=== PATIENT | female | born 1970 | race Two or more races ===

== ENCOUNTER 2017-09-29 07:33 | Inpatient (IN) | payer OTHER ==
[~2017-09-29] VITALS: Ht 162.6 cm; Wt 65.8 kg
--- NOTE | 2017-09-29 07:52 | NUR ---
a/ox4, patient came to er for fever, nausea and body aches since last night. pt sts she was recently admitted to the hospital for sepsis but left ama after 3 days. placed on cont cardiac and pox monitoring, sinustachy at 122 in the monitor. afebrile. all needs are attended, kept warm and comfortable. will cont to monitor
--- NOTE | 2017-09-29 07:53 | NUR ---
dr park at bedside for evaluation.
[2017-09-29] MEDS ORDERED: IV NS 0.9% 1,000 ML BAG IV ONE (08:00)
[2017-09-29 08:10] LABS: BASOPHILS % (AUTO) 0.3 % (0.0-2.0); EOSINOPHILS # (AUTO) 0.1 /CMM (0.0-0.7); EOSINOPHILS % (AUTO) 0.6 % (0.0-6.0); HEMATOCRIT 45 % (33-45); LYMPHOCYTES # (AUTO) 2.7 /CMM (0.8-4.8); LYMPHOCYTES % (AUTO) 27.3 % (20.0-44.0); MEAN CORPUSCULAR HEMOGLOBIN 30 PG (26.0-33.0); MEAN CORPUSCULAR HGB CONC 34 g/dl (31.0-36.0); MEAN CORPUSCULAR VOLUME 89 fL (82-100); MONOCYTES # (AUTO) 0.3 /CMM (0.1-1.30); MONOCYTES % (AUTO) 3.5 % (2.0-12.0); NEUTROPHILS # (AUTO) 6.6 /CMM (1.8-8.9); NEUTROPHILS % (AUTO) 68.3 % (43.0-81.0); PLATELET COUNT (AUTO) 433 /CMM (150-450); RDW COEFFICIENT OF VARIATION 13.1 (11.5-15.0); RED BLOOD CELL COUNT(AUTO) 5.03 MIL/uL (4.0-5.2); WHITE BLOOD COUNT (AUTO) 9.7 K/uL (4.3-11.0)
[2017-09-29 08:17] LABS: APPEARANCE,URINE SL CLOUDY (CLEAR); BILIRUBIN,URINE NEGATIVE (NEGATIVE); BLOOD, URINE NEGATIVE Ery/uL (NEGATIVE); COLOR,URINE YELLOW (YELLOW); KETONES,URINE NEGATIVE (NEGATIVE); LEUKOCYTE ESTERASE ,URINE NEGATIVE (NEGATIVE); NITRITE, URINE NEGATIVE (NEGATIVE); PROTEIN,URINE NEGATIVE (NEGATIVE); UGLUCOSE NEGATIVE (NEGATIVE); UROBILINOGEN,URINE 0.2 EU/dL (0.2)
[2017-09-29 08:26] LABS: ALANINE AMINOTRANSFERASE 40 U/L (12-78); ALBUMIN 3.9 g/dL (3.4-5.0); ALCOHOL, BLOOD < 3 mg/dL (0-0); ALKALINE PHOSPHATASE 80 U/L (46-116); ASPARTATE AMINOTRANSFERASE 20 U/L (15-37); BILIRUBIN,DIRECT 0.1 mg/dL (0.0-0.2); BILIRUBIN,TOTAL 0.5 mg/dL (0.2-1.0); CALCIUM, SERUM 9.2 mg/dL (8.5-10.1); CARBON DIOXIDE 28 mmol/L (21-32); CHLORIDE 103 mmol/L (98-107); CREATININE 0.8 mg/dL (0.6-1.3); GLUCOSE 137 mg/dL (74-106); POTASSIUM 3.8 mmol/L (3.5-5.1); SODIUM SERUM 142 mmol/L (136-145); TOTAL PROTEIN, SERUM 7.9 g/dL (6.4-8.2); UREA NITROGEN, BLOOD 11 mg/dL (7-18)
[2017-09-29 08:27] LABS: SALICYLATE 1.6 mg/dL (2.8-20.0); TROPONIN I < 0.017 ng/mL (0.00-0.056)
[2017-09-29 08:28] LABS: ACETAMINOPHEN < 10 ug/ml (10-30); INR 0.93 (0.87-1.13); PROTHROMBIN TIME 9.7 SECS (9.5-12.7)
--- NOTE | 2017-09-29 08:50 | NUR ---
PHARMACY CALLED,SPOKE WITH ALCIRA, TO SEND ROCEPHIN IV, [facility] IS OUT OF STOCK
[2017-09-29] MEDS ORDERED: CEFTRIAXONE 1GM BAG (ER ONLY) 1 GM/50 ML PIGGYBACK IV ONE (09:00)
--- NOTE | 2017-09-29 09:47 | NUR ---
MARGARITA FROM PHARMACY CALLED FOR MARIPOSA ROBLEROPB
[2017-09-29] MEDS ORDERED: MAGNESIUM HYDROXIDE 30 ML UDC PO PRN (10:00)
[2017-09-29] MEDS ORDERED: IV NS 0.9% 1,000 ML IV PRN (10:00)
[2017-09-29] MEDS ORDERED: ONDANSETRON HCL/PF 4 MG/2 ML VIAL IVP PRN (10:00)
[2017-09-29] MEDS ORDERED: MAG HYDROX/AL HYDROX/SIMETH 30 ML UDC PO PRN (10:00)
[2017-09-29] MEDS ORDERED: HYDROCODONE/APAP 5/325MG 1 EACH TABLET PO PRN (10:00)
[2017-09-29] MEDS ORDERED: Z GUARD REMEDY 2 OZ OINT TP PRN (10:00)
[2017-09-29] MEDS ORDERED: ACETAMINOPHEN 325 MG TABLET PO PRN (10:00)
[2017-09-29] MEDS ORDERED: CEFTRIAXONE 1GM BAG (ER ONLY) 50 ML IV ONE (10:09)
--- NOTE | 2017-09-29 10:18 | NUR ---
TRANSFERRED TO FLOOR VIA [facility]
--- NOTE | 2017-09-29 10:30 | NUR ---
CARPENTER REPAIRER INITIAL NOTE PATIENT BROUGHT TO SID VIA STRETCHER PATIENT IS AMBULATORY ALERT AND ORIENTED X 4 AND ABLE TO MAKE NEEDS KNOWN PATIENT DENIES ANY RECENT FALLS OPEN WOUNDS OR STRETCHED PATIENT BOYFRIEND IS AT BEDSIDE PATIENT ON ROOM AIR MILD SOB NOTED UPON RESTING HOWEVER NO CHEST PAIN PATIENT STATES FEELING LIKE SOMETHING IS OF PATIENT IS A CURRENT SMOKER AND STATES SHE SMOKES 1 PACK BETWEEN THE COURSE OF 3 DAYS . PATIENT STATES NOT MEDICATIONS TAKEN AT HOME PATIENT AWARE OF ATELECTASIS IN BILATERAL LOBES. PATIENT REQUESTING SMOKE CESSATION INFORMATION AND MEDICATION TO HELP HER STOP SMOKING . RN RINKU CONTINUE TO FOLLOW THE PATIENTS PROGRESS
[2017-09-29 10:33] LABS: TROPONIN I < 0.017 ng/mL (0.00-0.056)
[2017-09-29 10:58] LABS: IRON, SERUM 100 ug/dl (50-175); TOTAL IRON BINDING CAPACITY 281 ug/dl (250-450)
[2017-09-29 12:00] VITALS: BP 104/68
[2017-09-29] MEDS: ENOXAPARIN SODIUM 40 MG/0.4 ML DISP.SYRIN SQ SCH (12:27)
[2017-09-29 12:40] LABS: THYROID STIMULATING HORMONE 1.791 uIU/mL (0.358-3.74)
[2017-09-29] MEDS: IV NS 0.9% 1,000 ML IV PRN (13:23)
[2017-09-29 16:00] VITALS: BP 100/60
--- NOTE | 2017-09-29 17:02 | NUR ---
RN NOTE PATIENT COMPLAINING OF HEADACHES PATIENT STATES PAIN IS A 7 OUT OF 10 RN OFFERS PAIN PRMN MEDICATION PATIENT STATES SHE PREFERS NORCO [phone] AT THIS TIME. RN WILL CONTINUE TO FOLLOW PATIENT UPDATED ON PLAN OF CARE
--- NOTE | 2017-09-29 18:18 | NUR ---
RN NOTE PATIENT IN BED NO COMPLAINTS AT THIS TIME PATIENT UPDATED ON THE PLAN OF CARE NO COMPLAINTS AT THIS TIME , PATIENT ORIENTED TO THE ROOM , BOYFRIEND AT BEDSIDE. RN WILL ENDORSE CARE TO PM RN
--- NOTE | 2017-09-29 19:39 | NUR ---
rn opening note RECEIVED PATIENT IN BED ALERT/AWAKE, NO DISTRESS NOTED, NO NAUSEA/ VOMITING NOTED, BOYFRIEND IS BY BEDSIDE, BED IN THE LOW POSITION, CALL LIGHT WITHIN REACH, SIDE RAILS UP X 2
[2017-09-29 20:00] VITALS: BP 99/58
[2017-09-29] MEDS: ZOLPIDEM TARTRATE 5 MG TABLET PO PRN (21:34)
--- NOTE | 2017-09-29 21:35 | NUR ---
rn note patient requested Bright, notified charge nurse, BP 102/67, will recheck bp
[2017-09-29 22:00] VITALS: BP 102/62
[2017-09-30] VITALS: BP 98/63
[2017-09-30] MEDS: IV NS 0.9% 1,000 ML IV PRN (00:30)
[2017-09-30 04:00] VITALS: BP 105/69
[2017-09-30 05:51] LABS: BASOPHILS % (AUTO) 0.2 % (0.0-2.0); EOSINOPHILS # (AUTO) 0.2 /CMM (0.0-0.7); EOSINOPHILS % (AUTO) 1.8 % (0.0-6.0); HEMATOCRIT 37 % (33-45); HEMOGLOBIN 12.4 g/dL (11.5-14.8); LYMPHOCYTES # (AUTO) 2.4 /CMM (0.8-4.8); LYMPHOCYTES % (AUTO) 24.2 % (20.0-44.0); MEAN CORPUSCULAR HEMOGLOBIN 31 PG (26.0-33.0); MEAN CORPUSCULAR HGB CONC 34 g/dl (31.0-36.0); MEAN CORPUSCULAR VOLUME 91 fL (82-100); MONOCYTES # (AUTO) 0.7 /CMM (0.1-1.30); MONOCYTES % (AUTO) 6.8 % (2.0-12.0); NEUTROPHILS # (AUTO) 6.6 /CMM (1.8-8.9); PLATELET COUNT (AUTO) 323 /CMM (150-450); RDW COEFFICIENT OF VARIATION 13.2 (11.5-15.0); RED BLOOD CELL COUNT(AUTO) 4.07 MIL/uL (4.0-5.2); WHITE BLOOD COUNT (AUTO) 9.9 K/uL (4.3-11.0)
[2017-09-30 06:08] LABS: CALCIUM, SERUM 8.1 mg/dL (8.5-10.1); CREATININE 0.5 mg/dL (0.6-1.3); MAGNESIUM 1.7 mg/dL (1.8-2.4); PHOSPHORUS 3.2 mg/dL (2.5-4.9)
--- NOTE | 2017-09-30 07:25 | NUR ---
RN NOTES RECEIVED PT IN STABLE CONDITION FROM BAND SHOVER CONDITION. A&0X3 ON ROOM AIR SATING WELL NO SOB OR DISTRESS NOTED. SR ON THE TELE MONITOR HR 88. RAC20G IV SITE INTACT WITH IVF AT 75ML/HR. BED LOCKED AND IN LOWEST POSITION, CALL LIGHT WITHIN REACH, SIDE RAILS UPX3, WILL CONT TO MARILU.
[2017-09-30 08:00] VITALS: BP 97/61
[2017-09-30] MEDS: ENOXAPARIN SODIUM 40 MG/0.4 ML DISP.SYRIN SQ SCH (08:48)
[2017-09-30] MEDS: LORAZEPAM INJ 2 MG/ML VIAL IV PRN ×2 (08:54→16:09)
[2017-09-30 12:00] VITALS: BP 96/59
[2017-09-30] MEDS: Magnesium 1GM/D5W 100ML PREMIX 100 ML IV SCH ×2 (12:22→13:46)
[2017-09-30 16:00] VITALS: BP 101/58
--- NOTE | 2017-09-30 18:32 | NUR ---
RN NOTES PT REMAINED IN STABLE CONDITION THROUGHOUT THE SHIFT, NO SIGNIFICANT CHANGES ALL NEEDS MET. NO COMPLAINTS OF PAIN AT THIS TIME. WILL ENDORSE TO ONCOMING SHIFT.
[2017-09-30 20:00] VITALS: BP 98/60
[2017-09-30] MEDS: ZOLPIDEM TARTRATE 5 MG TABLET PO PRN (20:20)
--- NOTE | 2017-09-30 20:20 | NUR ---
TELE 1 RN NOTE PT IN BED AWAKE. A/O X 4, NO SOB NOTED. PT C/O PAIN 7/ LOWER BACK. REMINDED PT PAIN MED IS NOT DUE TILL 2200. PT WANTS SLEEPING MED NOW, STATES " I WANT TO GO TO SLEEP NOW". AMBIEN 5 MG PO GIVEN. IVF NS @ 75 ML/HR INFUSING WELL RAC #20 G NO S/S OF INFILTRATION NOTED. FAMILY AT BED SIDE. SIDE RAILS UP X 2 AND CALL LIGHT WITHIN REACH. VSS CONTINUE TO MONITOR HER.
--- NOTE | 2017-09-30 22:43 | NUR ---
TELE 1 RN NOTE PT IN BED ASLEEP, NO DISTRESS NOTED. IVF INFUSING WELL. REPORT GIVEN TO NURSE RODRIGUES FOR CONTINUE TO CARE.
[2017-10-01] VITALS: BP 99/61
[2017-10-01 04:00] VITALS: BP 98/64
[2017-10-01] MEDS: IV NS 0.9% 1,000 ML IV PRN (05:38)
[2017-10-01 07:05] LABS: CREATININE 0.5 mg/dL (0.6-1.3); POTASSIUM 3.9 mmol/L (3.5-5.1)
--- NOTE | 2017-10-01 07:30 | NUR ---
ASSET MANAGEMENT ANALYST OPENING RECEIVED PATIENT A/OX4 DENIES SOB, DIFFICULTY BREATHING OR PAIN. PATIENT APPEARS STABLE. SLIGHTLY ANXIOUS AND WANTS TO GO HOME BUT SAYS SHE UNDERSTANDS IF SHE NEEDS TO STAY. ALL NEEDS IN REACH, UPDATED PATIENT ON CONDITION AND CARE PLAN AND STATES SHE FEELS BETTER. WILL ROUND Q2H OR LESS PER NEEDS
[2017-10-01 08:00] VITALS: BP 99/65
[2017-10-01 08:20] VITALS: BP 108/72
[2017-10-01] MEDS: LORAZEPAM INJ 2 MG/ML VIAL IV PRN (08:20)
[2017-10-01] MEDS: ENOXAPARIN SODIUM 40 MG/0.4 ML DISP.SYRIN SQ SCH (08:21)
[2017-10-01] MEDS ORDERED: CEFTRIAXONE 1 G VIAL IM SCH (11:30)
[2017-10-01 12:00] VITALS: BP 99/56
--- NOTE | 2017-10-01 12:20 | NUR ---
POCKETED SPRING ASSEMBLER NOTES STILL WAITING FOR PHARMACY TO PROVIDE ROCEPHIN
[2017-10-01] MEDS ORDERED: NICO1PAT25 TD (13:51)
[2017-10-01] MEDS ORDERED: NITR100C6 PO (13:51)
[2017-10-01] MEDS ORDERED: NICO1PAT23 TD (13:51)
[2017-10-01] MEDS ORDERED: CEFTRIAXONE 1 G in IV D5W 50 ML IV SCH (14:00)
--- NOTE | 2017-10-01 14:10 | NUR ---
BUILDING MAINTENANCE REPAIRERAIR BRAKE RIGGER PATIENT LEFT IN STABLE CONDITION. DID NOT WANT TO WAIT FOR IV AX ADMIN. DALLIN WROTE RX FOR PO ANTIBIOTICS WHICH I CALLED INTO PATIENT PREFERRED PHARMACY AND RX GIVEN TO PATIENT. PATIENT UPDATED ON DC MATERIAL AND STATED UNDERSTANDING. ALL DUE MEDS GIVEN AND ALL NEEDS MET. I REMOVED PATIENT IV ACCESS WITH PRESSURE AND DRESSING APPLIED NO BLEEDING NOTED. CATH TIP INTACT. PATIENT BELONGINGS ALL ACCOUNTED FOR AND SIGNED. PATIENT ASSISTED TO PRIVATE VEHICLE IN STABLE CONDITION BY BAUDILIO FARR
== END 2017-10-01 15:35 | disposition home or self-care (01) | DRG 720 ==
LOC: ER 07:38 → TELE1 09:10
PROVIDERS: ADMIT Internal Medicine; ATTEND Internal Medicine
DX: A41.9 Sepsis, unspecified organism (principal); E87.2 Acidosis; E86.0 Dehydration; K21.9 Gastro-esophageal reflux disease without esophagitis; N39.0 Urinary tract infection, site not specified; Z87.440 Personal history of urinary (tract) infections; R00.0 Tachycardia, unspecified; F19.90 Other psychoactive substance use, unspecified, uncomplicated; B95.2 Enterococcus as the cause of diseases classified elsewhere; B96.89 Other specified bacterial agents as the cause of diseases classified elsewhere
CPT/HCPCS: 36415; 71010-TC; 80048-TC; 80076-TC; 80305; 81000-TC; 83540-TC; 83605-TC; 83735-TC; 84100-TC; 84443-TC; 84484-TC; 85025-TC; 85730-TC; 87040-TC; 87081-TC; 87086-TC; 87186-TC; A4606; A6253; A6402; A6403; G0480; J0696; J1650; J2060; J3475; J7030; J7060; Z7610

== ENCOUNTER 2023-08-20 17:47 | Emergency (ER) | payer OTHER ==
[~2023-08-20] VITALS: Ht 152.4 cm; Wt 64.0 kg
[~2023-08-20 17:47] MED LIST: NICO1PAT23 TD; NICO1PAT25 TD; NITR100C6 PO
[2023-08-20] MEDS ORDERED: IOHEXOL-350 100 ML VIAL IV ONE (18:54)
[2023-08-20] MEDS ORDERED: IV NS 0.9% 250 ML IV ONE (18:54)
[2023-08-20] MEDS ORDERED: ASPIRIN 81 MG TAB.CHEW ONE (18:57)
[2023-08-20] MEDS ORDERED: ASPIRIN 81 MG TAB.CHEW PO ONE (19:00)
[2023-08-20 19:24] LABS: BASOPHILS % (AUTO) 0.1 % (0.0-2.0); EOSINOPHILS # (AUTO) 0.3 K/uL (0.0-0.7); EOSINOPHILS % (AUTO) 4.1 % (0.0-6.0); HEMATOCRIT 40 % (33-45); HEMOGLOBIN 13.2 g/dL (11.5-14.8); LYMPHOCYTES % (AUTO) 26.4 % (20.0-44.0); MEAN CORPUSCULAR HEMOGLOBIN 29 PG (26.0-33.0); MEAN CORPUSCULAR HGB CONC 33 g/dl (31.0-36.0); MEAN CORPUSCULAR VOLUME 88 fL (82-100); MONOCYTES # (AUTO) 0.7 K/uL (0.1-1.30); MONOCYTES % (AUTO) 8.8 % (2.0-12.0); NEUTROPHILS # (AUTO) 4.6 K/uL (1.8-8.9); NEUTROPHILS % (AUTO) 60.6 % (43.0-81.0); PLATELET COUNT (AUTO) 243 K/uL (150-450); RED BLOOD CELL COUNT(AUTO) 4.52 MIL/uL (4.0-5.2); RED CELL DISTRIBUTION WIDTH 13.4 % (11.5-15.0); WHITE BLOOD COUNT (AUTO) 7.6 K/uL (4.3-11.0)
[2023-08-20 19:36] LABS: CALCIUM, SERUM 9.1 mg/dL (8.5-10.1); CARBON DIOXIDE 29 mmol/L (21-32); CHLORIDE 104 mmol/L (98-107); CREATININE 0.7 mg/dL (0.6-1.3); GLUCOSE 94 mg/dL (74-106); POTASSIUM 3.9 mmol/L (3.5-5.1); SODIUM SERUM 139 mmol/L (136-145); UREA NITROGEN, BLOOD 16 mg/dL (7-18)
[2023-08-20 19:49] LABS: NT-PRO BNP 24 pg/mL (0-125)
[2023-08-20 21:58] VITALS: BP 122/78; TEMP 98; O2SAT 99
== END 2023-08-20 22:06 | disposition home or self-care (01) ==
LOC: ER 18:13
DX: R07.9 Chest pain, unspecified (principal); F17.200 Nicotine dependence, unspecified, uncomplicated; Z87.442 Personal history of urinary calculi; Z90.89 Acquired absence of other organs
CPT/HCPCS: 99285; 93970; 71275; 71045; 93005; 85025; 80048; 36415; 84484; 83880; J7050; Q9967